=== PATIENT | male | born 1970 | race Caucasian/White ===

== ENCOUNTER 2023-03-15 04:24 | Emergency (ER) | payer MEDICARE ==
[~2023-03-15] VITALS: Ht 175 cm; Wt 138.0 kg
[~2023-03-15 04:24] MED LIST: ALLP100T PO; HYDR1TAB66 PO; LISI20TA PO; LVST20T PO; MTF500T PO
[2023-03-15 04:30] VITALS: BP 180/107
--- NOTE | 2023-03-15 04:47 | ED Cough/URI ---
General Chief Complaint: Cough/Cold/Flu Symptoms Stated Complaint: SINUS DRAINAGE,COUGH Nursing Triage Note: patient states uses cpap. states difficulty breathing from nose. patient states uses nasal spray that helps initially, throughtout the night has to use more nasal spray. Source: patient History of Present Illness Date Seen by Provider: Mar 15, 2023 Time Seen by Provider: 04:35 Initial Comments PT ARRIVES VIA POV FROM HOME C/O NASAL CONGESTION SINCE Tuesday03/13/23 USES A CPAP AND IT CAUSES NASAL CONGESTION AND PT HAS DIFFICULTY BREATHING THROUGH HIS NOSE USES AN UNKNOWN NASAL SPRAY AND IT HELPS, BUT ONLY LASTS FOR A COUPLE OF HOURS. HAS HAD SUBJECTIVE FEVER AND CHILLS AND SWEATS SINCE TUESDAY--HE HAS NOT CHECKED HIS TEMP OR TAKEN ANYTHING FOR THESE SYMPTOMS NO SHORTNESS OF BREATH OR WHEEZING OR CHEST TIGHTNESS NO SORE THROAT NO SINUS PAIN NO GI SYMPTOMS NO HEADACHE OR BODY ACHES PT HAS HISTORY OF ASTHMA--HAS NOT NEEDED INHALER PCP: DR. RICH Allergies and Home Medications Allergies Coded Allergies: No Known Drug Allergies (Verified Allergy, Unknown, 05/17/08) Patient Home Medication List Allopurinol (Zyloprim) 100 Mg Tab, 100 MG PO DAILY, (Reported) Entered as Reported by: NATHANIEL ISLAS on 02/07/12852 Hydrocodone Bit/Acetaminophen (Hydrocodon-Acetaminophen 5-500) 1 Each Tablet, 1- 2 EACH PO NEEDED, (Reported) Entered as Reported by: NATHANIEL ISLAS on 02/07/12852 Lisinopril (Prinivil) 20 Mg Tablet, 20 MG PO HS, (Reported) Entered as Reported by: NATHANIEL ISLAS on 02/07/12852 Lovastatin (Mevacor) 20 Mg Tablet, 40 MG PO HS, (Reported) Entered as Reported by: JANUSZ DAN on 05/16/081801 Metformin Hcl (Glucophage) 500 Mg Tab, 1,000 MG PO BID, (Reported) Entered as Reported by: JANUSZ DAN on 05/16/081800 Molnupiravir (Molnupiravir (Eua)) 200 Mg Capsule, 800 MG PO BID Prescribed by: ANGELLA OROZCO on 03/15/23 0525 Past Eftfgly-Urnwrb-Kapwez Hx Past Medical History Surgery/Hospitalization HX: tonsils age 1, ortho rt ankle, colon resection, appy Reproductive Disorders: No Physical Exam Vital Signs - First Documented 03/15/23 04:30 Temp 36.8 Pulse 85 Resp 20 B/P (MAP) 180/107 (131) Pulse Ox 97 O2 Delivery Room Air Capillary Refill : Less Than 3 Seconds Height: '" Weight: lbs. oz. kg; 45.00 BMI Method: Progress/Results/Core Measures Suspected Sepsis SIRS Temperature: Pulse: 85 Respiratory Rate: 20 Blood Pressure 180 /107 Mean: 131 Results/Orders Lab Results Laboratory Tests Test 03/15/23 04:36 Range/Units Influenza Type A (RT-PCR) Not Detected Not Detecte Influenza Type B (RT-PCR) Not Detected Not Detecte SARS-CoV-2 RNA (RT-PCR) Detected H Not Detecte My Orders Orders - ANGELLA OROZCO DO Covid 19 Inhouse Test (03/15/23 04:31) Influenza A And B By Pcr (03/15/23 04:31) Vital Signs/I&O 03/15/23 04:30 Temp 36.8 Pulse 85 Resp 20 B/P (MAP) 180/107 (131) Pulse Ox 97 O2 Delivery Room Air Capillary Refill : Less Than 3 Seconds Blood Pressure Mean: 131 Departure Impression Primary Impression: COVID-19 virus infection Disposition: 01 HOME, SELF-CARE Condition: Stable Departure-Patient Inst. Decision time for Depature: 05:10 Referrals: PARADISE RICH DO (PCP/Family) Primary Care Physician Patient Instructions: COVID-19 ED, Preventing the Spread of an Infectious Disease Add. Discharge Instructions: LOTS OF CLEAR LIQUIDS FLONASE OR NASACORT NASAL SPRAYS FOR NASAL CONGESTION CLARITIN OR ZYRTEC FOR RUNNY NOSE MUCINEX DM OR ROBITUSSIM DM FOR COUGH TYLENOL AND MOTRIN FOR PAIN OR FEVER LOTS OF CLEAR LIQUIDS QUARANTINE FOR 10 DAYS FOLLOW UP WITH YOUR DR NEEDED All discharge instructions reviewed with patient and/or family. Voiced understanding. Scripts Molnupiravir (Molnupiravir (Eua)) 200 Mg Capsule 800 MG PO BID for 5 Days, #40 CAP Prov: ANGELLA OROZCO DO 03/15/23 Work/School Note: Family Work Note Patient Received Medical Care In the Emergency Department On: Mar 15, 2023 Patient Will Be Able to Return to Work/School On: Mar 15, 2023 Patient Restrictions: NEED TO QUARANTINE FOR 10 DAYS ANGELLA OROZCO DO Mar 15, 2023 04:47
[2023-03-15] MEDS ORDERED: MOLN200C PO (05:25)
== END 2023-03-15 05:31 | disposition home or self-care (01) ==
LOC: EDUNIT# 04:24 → ER 04:28
DX: U07.1 COVID-19 (principal); R09.81 Nasal congestion; R06.00 Dyspnea, unspecified; Z28.310 Unvaccinated for COVID-19
CPT/HCPCS: 87636; 99283